=== PATIENT | male | born 1975 | race Caucasian/White ===

== ENCOUNTER 2025-06-22 15:23 | Emergency (ER) | payer MEDICAID ==
[~2025-06-22] VITALS: Ht 180.3 cm; Wt 96.0 kg
[2025-06-22 15:36] VITALS: O2SAT 99
[2025-06-22 16:32] LABS: BASOPHILS % 0.4 % (0.0-2.0); EOSINOPHILS % 0.2 % (0.0-5.0); HEMATOCRIT. 44.4 % (42.0-52.0); HEMOGLOBIN. 15.3 g/dL (14.0-18.0); LYMPHOCYTES % 12.0 % (20.0-50.0); MEAN PLATELET VOLUME 7.1 fl (7.4-10.4); MONOCYTES % 9.4 % (2.0-8.0); NEUTROPHILS % 78.0 % (40.0-76.0); PLATELET 353 x1000/uL (130-400); RED BLOOD CELL COUNT 4.62 mill/uL (4.7-6.1); RED CELL DISTRIBUTION WIDTH 14.1 % (11.6-14.6)
[2025-06-22 16:36] LABS: CREATININE 1.4 mg/dL (0.6-1.3); UREA NITROGEN BLOOD 16 mg/dL (9-23)
[2025-06-22 16:37] LABS: TROPONIN I HIGH SENSITIVITY < 4 ng/L (3.0-53)
[2025-06-22 18:35] VITALS: BP 144/106; PULSE 146; RESP 16; TEMP 37; O2SAT 97
[2025-06-25] MEDS ORDERED: METO25TA6 PO (13:49)
== END 2025-06-22 18:31 | disposition home or self-care (01) ==
LOC: ER 15:23
DX: R07.89 Other chest pain (principal); F15.90 Other stimulant use, unspecified, uncomplicated
CPT/HCPCS: 36415; 80048; 84484; 85025; 93005; 99284; A4606

== ENCOUNTER 2025-09-04 14:49 | Emergency (ER) | payer MEDICAID ==
[~2025-09-04] VITALS: Ht 182.9 cm; Wt 106.0 kg
[~2025-09-04 14:49] MED LIST: METO25TA6 PO
[2025-09-04 15:00] VITALS: BP 141/86; PULSE 129; RESP 18; TEMP 37; O2SAT 100
[2025-09-04 16:52] LABS: BASOPHILS % 0.9 % (0.0-2.0); EOSINOPHILS % 0.5 % (0.0-5.0); HEMATOCRIT. 43.3 % (42.0-52.0); HEMOGLOBIN. 14.6 g/dL (14.0-18.0); LYMPHOCYTES % 12.8 % (20.0-50.0); MEAN PLATELET VOLUME 7.1 fl (7.4-10.4); MONOCYTES % 10.1 % (2.0-8.0); NEUTROPHILS % 75.7 % (40.0-76.0); PLATELET 346 x1000/uL (130-400); RED BLOOD CELL COUNT 4.35 mill/uL (4.7-6.1); RED CELL DISTRIBUTION WIDTH 14.7 % (11.6-14.6)
[2025-09-04 17:28] LABS: CREATININE 1.1 mg/dL (0.6-1.3); UREA NITROGEN BLOOD 21 mg/dL (9-23)
[2025-09-04 17:29] LABS: TROPONIN I HIGH SENSITIVITY 7 ng/L (3.0-53)
== END 2025-09-04 19:28 | disposition home or self-care (01) ==
LOC: ER 14:53
DX: R07.9 Chest pain, unspecified (principal); A41.9 Sepsis, unspecified organism; Z79.899 Other long term (current) drug therapy
CPT/HCPCS: 36415; 71045; 80048; 84484; 85025; 93005; 99285